=== PATIENT | female | born 1985 | race Hispanic/Latino ===

== ENCOUNTER 2018-05-16 12:48 | Emergency (ER) | payer SELFPAY | END 2018-05-16 13:08 | disposition home or self-care (01) | LOC: EDH 12:48 | DX: J11.1 Influenza due to unidentified influenza virus with other respiratory manifestations (principal); Z72.0 Tobacco use ==

== ENCOUNTER 2018-05-21 08:34 | Emergency (ER) | payer SELFPAY | END 2018-05-21 10:35 | disposition home or self-care (01) | LOC: EDH 08:34 | DX: J11.1 Influenza due to unidentified influenza virus with other respiratory manifestations (principal) | CPT/HCPCS: 71045 ==

== ENCOUNTER 2018-08-11 09:29 | Emergency (ER) | payer OTHER | END 2018-08-11 11:34 | disposition home or self-care (01) | LOC: EDH 09:29 | DX: B34.9 Viral infection, unspecified (principal); J40 Bronchitis, not specified as acute or chronic; Z98.51 Tubal ligation status | CPT/HCPCS: 71046; 87804 ==

== ENCOUNTER 2018-11-20 08:57 | Emergency (ER) | payer OTHER ==
[2018-11-20] MEDS ORDERED: ONDANSETRON ODT 4 MG TAB ONE (09:17)
== END 2018-11-20 09:32 | disposition home or self-care (01) ==
LOC: EDH 08:57 → EEVIPCON 08:57 → EDH 09:32
DX: R11.2 Nausea with vomiting, unspecified (principal); F41.9 Anxiety disorder, unspecified; F31.9 Bipolar disorder, unspecified; F43.10 Post-traumatic stress disorder, unspecified; Z98.51 Tubal ligation status

== ENCOUNTER 2019-01-07 20:31 | Emergency (ER) | payer SELFPAY ==
[2019-01-07] MEDS ORDERED: ACETAMINOPHEN 325 MG TAB ONE (20:54)
[2019-01-07] MEDS ORDERED: IBUPROFEN 600 MG TABLET ONE (21:46)
== END 2019-01-07 21:58 | disposition home or self-care (01) ==
LOC: EDH 20:31
DX: S89.82XA Other specified injuries of left lower leg, initial encounter (principal); F41.9 Anxiety disorder, unspecified; F31.9 Bipolar disorder, unspecified; F43.10 Post-traumatic stress disorder, unspecified; X50.1XXA Overexertion from prolonged static or awkward postures, initial encounter; Y93.89 Activity, other specified; Y92.89 Other specified places as the place of occurrence of the external cause; Y99.8 Other external cause status
CPT/HCPCS: 29505; 73562

== ENCOUNTER 2023-06-11 10:55 | Emergency (ER) | payer MEDICAID ==
[~2023-06-11] VITALS: Ht 160 cm; Wt 88.9 kg
[2023-06-11 11:52] VITALS: BP 124/70; PULSE 75; RESP 16; O2SAT 99
[2023-06-11] MEDS ORDERED: KETOROLAC 60 MG VIAL (30MG/ML) IM ONE (13:00)
[2023-06-11] MEDS ORDERED: ACET-2079 PO (14:49)
[2023-06-11] MEDS ORDERED: IBUP-2070 PO (14:49)
[2023-06-11] MEDS ORDERED: HYDROCODONE/ACETAMINOPHEN 5/325 MG TAB PO ONE (15:00)
== END 2023-06-11 15:10 | disposition home or self-care (01) ==
LOC: EDH 10:55
DX: S92.351A Displaced fracture of fifth metatarsal bone, right foot, initial encounter for closed fracture (principal); W01.0XXA Fall on same level from slipping, tripping and stumbling without subsequent striking against object, initial encounter; Y93.89 Activity, other specified; Y92.89 Other specified places as the place of occurrence of the external cause; Y99.8 Other external cause status
CPT/HCPCS: 99283; 73630; 96372; J1885

== ENCOUNTER → 2023-07-09 | Emergency (ER) | payer MEDICAID, MEDICARE ==
[~2023-07-09] VITALS: Ht 162.6 cm; Wt 113.4 kg
[~2023-07-09] MED LIST: ACET-2079 PO; IBUP-2070 PO
[2023-07-09 17:54] LABS: BASOPHILS # (AUTO) 0.05 K/uL (0.00-0.20); BASOPHILS % (AUTO) 0.5 % (0.0-5.0); EOSINOPHILS # (AUTO) 0.12 K/uL (0.00-0.70); EOSINOPHILS % (AUTO) 1.2 % (0.0-8.0); IMMATURE GRANULOCYTE ABSOLUTE 0.04 K/uL (0-1); LYMPHOCYTES # (AUTO) 2.9 K/uL (1.0-4.8); LYMPHOCYTES % (AUTO) 28.5 % (21.0-51.0); MEAN CORPUSCULAR HEMOGLOBIN 30.2 pg (27.0-33.0); MEAN CORPUSCULAR HGB CONC 33.7 g/dL (32.0-36.0); MEAN CORPUSCULAR VOLUME 89.6 fL (79-99); MONOCYTES # (AUTO) 0.7 K/uL (0.1-1.0); MONOCYTES % (AUTO) 6.5 % (3.0-13.0); NEUTROPHILS # (AUTO) 6.4 K/uL (1.8-7.7); NEUTROPHILS % (AUTO) 62.9 % (40.0-77.0); PLATELET COUNT (AUTO) 322 K/uL (130-400); RED BLOOD CELL COUNT(AUTO) 4.24 MIL/uL (4.00-5.50); RED CELL DISTRIBUTION WIDTH 13.8 % (11.0-15.5); WHITE BLOOD COUNT (AUTO) 10.2 K/uL (4.8-10.8)
[2023-07-09 18:31] LABS: CARBON DIOXIDE 27 mmol/L (21-32); CHLORIDE 102 mmol/L (101-111); CREATININE 0.9 mg/dL (0.5-1.5); GLOMERULAR FILTR. RATE CALC 85 mL/min (>90); GLUCOSE,RANDOM 84 mg/dL (70-105); POTASSIUM 3.7 mmol/L (3.5-5.1); SODIUM SERUM 139 mmol/L (136-145); UREA NITROGEN, BLOOD 9 mg/dL (7-18)
[2023-07-09 18:39] LABS: ALANINE AMINOTRANSFERASE 35 U/L (12-78); ALBUMIN 3.8 g/dL (3.5-5.0); ALCOHOL, BLOOD < 3 mg/dL (0-10); ASPARTATE AMINOTRANSFERASE 26 U/L (10-37); BILIRUBIN,TOTAL 0.2 mg/dL (0.2-1.0); TOTAL PROTEIN, SERUM 7.8 g/dL (6.0-8.3)
[2023-07-09 19:44] VITALS: BP 132/90; PULSE 82; RESP 16; O2SAT 96
== END ==
LOC: EDH 16:36
DX: R56.9 Unspecified convulsions (principal); F41.9 Anxiety disorder, unspecified; F31.9 Bipolar disorder, unspecified
CPT/HCPCS: 36415; 80053; 83605; 85025; 87040

== ENCOUNTER 2024-01-12 19:11 | Emergency (ER) | payer MEDICARE ==
[~2024-01-12] VITALS: Ht 160 cm; Wt 108.9 kg
[2024-01-12 21:21] LABS: BASOPHILS # (AUTO) 0.03 K/uL (0.00-0.20); BASOPHILS % (AUTO) 0.3 % (0.0-5.0); EOSINOPHILS # (AUTO) 0.02 K/uL (0.00-0.70); EOSINOPHILS % (AUTO) 0.2 % (0.0-8.0); HEMATOCRIT 44.2 % (36-48); IMMATURE GRANULOCYTE ABSOLUTE 0.03 K/uL (0-1); LYMPHOCYTES # (AUTO) 1.7 K/uL (1.0-4.8); LYMPHOCYTES % (AUTO) 15.8 % (21.0-51.0); MEAN CORPUSCULAR HEMOGLOBIN 29.7 pg (27.0-33.0); MEAN CORPUSCULAR HGB CONC 33.7 g/dL (32.0-36.0); MEAN CORPUSCULAR VOLUME 88.2 fL (79-99); MONOCYTES # (AUTO) 0.6 K/uL (0.1-1.0); NEUTROPHILS # (AUTO) 8.6 K/uL (1.8-7.7); NEUTROPHILS % (AUTO) 78.4 % (40.0-77.0); PLATELET COUNT (AUTO) 299 K/uL (130-400); RED BLOOD CELL COUNT(AUTO) 5.01 MIL/uL (4.00-5.50); RED CELL DISTRIBUTION WIDTH 13.2 % (11.0-15.5)
[2024-01-12 21:30] LABS: CREATININE 0.8 mg/dL (0.5-1.0); POTASSIUM 3.3 mmol/L (3.5-5.1)
[2024-01-12 21:39] LABS: ALBUMIN 3.7 g/dL (3.5-5.0); BILIRUBIN,TOTAL 0.6 mg/dL (0.2-1.0); TOTAL PROTEIN, SERUM 7.9 g/dL (6.0-8.3)
[2024-01-13 00:11] LABS: SARS-CoV-2, RNA, NAAT NEGATIVE SARS CoV-2 (NEGATIVE)
[2024-01-13 00:12] LABS: INFLUENZA TYPE A NEGATIVE FOR TYPE A (NEG); INFLUENZA TYPE B NEGATIVE FOR TYPE B (NEG)
[2024-01-13 00:13] LABS: RAPID GROUP A STREP positive (NEGATIVE)
[2024-01-13] MEDS ORDERED: AMOX500C2 PO (00:24)
[2024-01-13] MEDS: ONDANSETRON 4MG INJ IVP ONE (00:25)
[2024-01-13] MEDS: PANTOPRAZOLE 40 MG/VIAL IVP ONE (00:26)
[2024-01-13] MEDS: LACTATED RINGERS 1000ML 1,000 ML IV ONE (00:26)
[2024-01-13 00:33] VITALS: BP 105/54; PULSE 89; RESP 20; O2SAT 100
[2024-01-13 00:33] LABS: APPEARANCE,URINE TURBID (CLEAR); BILIRUBIN,URINE NEGATIVE (NEGATIVE); COLOR,URINE YELLOW (YELLOW); GLUCOSE, URINE (UA) NEGATIVE (NEGATIVE); KETONES,URINE NEGATIVE (NEGATIVE); LEUKOCYTE ESTERASE ,URINE 500 Leu/uL (NEGATIVE); NITRATE,URINE NEGATIVE (NEGATIVE); OCCULT BLOOD,URINE NEGATIVE (NEGATIVE); PROTEIN,URINE 30 mg/dL (NEGATIVE)
[2024-01-13 00:35] LABS: ADD UA MICROSCOPIC YES
[2024-01-13 00:37] LABS: HCG,QUALITATIVE URINE NEGATIVE (NEGATIVE)
[2024-01-13 00:39] LABS: BACTERIA,URINE MANY /HPF (None Seen); MUCUS,URINE MANY LPF (None Seen); SQUAMOUS EPITHELIAL CELL,UR MANY /HPF (0-2)
[2024-01-13 00:42] LABS: AMPHET/METH SCREEN,URINE NEGATIVE (NEGATIVE); BARBITURATE SCREEN, URINE NEGATIVE (NEGATIVE); BENZODIAZEPINES SCREEN,URINE NEGATIVE (NEGATIVE); CANNABINOID SCREEN,URINE NEGATIVE (NEGATIVE); COCAINE SCREEN,URINE NEGATIVE (NEGATIVE); OPIATE SCREEN,URINE NEGATIVE (NEGATIVE); PHENCYCLIDINE SCREEN,URINE NEGATIVE (NEGATIVE)
[2024-01-13] MEDS: ONDANSETRON 4MG INJ ONE (01:16)
[2024-01-13] MEDS: PANTOPRAZOLE 40 MG/VIAL ONE (01:16)
== END 2024-01-13 01:23 | disposition home or self-care (01) ==
LOC: EDH 19:11
DX: J02.0 Streptococcal pharyngitis (principal); F41.9 Anxiety disorder, unspecified; F31.9 Bipolar disorder, unspecified; Z20.822 Contact with and (suspected) exposure to COVID-19; Z79.899 Other long term (current) drug therapy; Z98.890 Other specified postprocedural states
CPT/HCPCS: 99284; 87635; 82550; 84484; 80053; 80305; 83690; 85025; 87088; 87880; 87804 ×2; 81025; 36415; 81001; 96374; 96375; J7120; J2405; C9113

== ENCOUNTER 2024-07-06 07:34 | Emergency (ER) | payer MEDICARE ==
[~2024-07-06] VITALS: Ht 160 cm; Wt 113.4 kg
[~2024-07-06 07:34] MED LIST changes: +AMOX500C2 PO
[2024-07-06 07:40] VITALS: TEMP 97.9
[2024-07-06 09:27] LABS: BASOPHILS # (AUTO) 0.03 K/uL (0.00-0.20); BASOPHILS % (AUTO) 0.3 % (0.0-5.0); EOSINOPHILS # (AUTO) 0.11 K/uL (0.00-0.70); EOSINOPHILS % (AUTO) 1.2 % (0.0-8.0); HEMATOCRIT 43.4 % (36-48); IMMATURE GRANULOCYTE ABSOLUTE 0.03 K/uL (0-1); LYMPHOCYTES # (AUTO) 2.5 K/uL (1.0-4.8); LYMPHOCYTES % (AUTO) 27.6 % (21.0-51.0); MEAN CORPUSCULAR HEMOGLOBIN 30.1 pg (27.0-33.0); MEAN CORPUSCULAR HGB CONC 32.9 g/dL (32.0-36.0); MEAN CORPUSCULAR VOLUME 91.4 fL (79-99); MONOCYTES # (AUTO) 0.7 K/uL (0.1-1.0); MONOCYTES % (AUTO) 7.3 % (3.0-13.0); NEUTROPHILS # (AUTO) 5.8 K/uL (1.8-7.7); NEUTROPHILS % (AUTO) 63.3 % (40.0-77.0); PLATELET COUNT (AUTO) 313 K/uL (130-400); RED BLOOD CELL COUNT(AUTO) 4.75 MIL/uL (4.00-5.50); RED CELL DISTRIBUTION WIDTH 13.2 % (11.0-15.5); WHITE BLOOD COUNT (AUTO) 9.1 K/uL (4.8-10.8)
[2024-07-06 09:34] LABS: CREATININE 0.7 mg/dL (0.5-1.0)
[2024-07-06 09:40] LABS: ALBUMIN 3.6 g/dL (3.5-5.0); BILIRUBIN,TOTAL 0.4 mg/dL (0.2-1.0); TOTAL PROTEIN, SERUM 7.7 g/dL (6.0-8.3)
--- NOTE | 2024-07-06 10:43 | ERN ---
General Chief Complaint: Lower Extremity Pain/Injury Stated Complaint: BLE PAIN Time Seen by MD: 08:28 Source: patient History of Present Illness Initial Comments Is a 38-year-old female coming in to be evaluated for right piriformis muscle tenderness radiating down the leg. Patient states she was told she has sciatica of the right side. Allergies: Coded Allergies: No Known Allergies (Unverified Allergy, Unknown, 06/11/23) Home Meds Active Scripts Amoxicillin (Amoxicillin) 500 Mg Capsule, 500 MG PO TID for 7 Days, #21 CAP Prov:MADDIE FOY MD 01/13/24 Acetaminophen with Codeine (Acetaminophen-Cod #3 Tablet) 300 Mg-30 Mg Tablet, 1 TAB PO Q6H PRN for PAIN LEVEL 6 TO 10, #12 TAB 0 Refills Prov:TIGRE AYALA 06/11/23 Ibuprofen (Ibuprofen) 600 Mg Tablet, 600 MG PO Q6H PRN for PAIN, #20 TAB 0 Refills Prov:TIGRE AYALA 06/11/23 Past Medical History Past Medical History: Anxiety, Bipolar, Depression, Seizure, Other Medical History Other: PTSD Past Surgical History: Surgical History Other: BUNION Social History Social History: Lives with family Female( History) LMP: Jun 21, 2024 Results Laboratory and Microbiology Lab and Micro Result Laboratory Tests Test 07/06/24 09:15 White Blood Count 9.1 K/uL (4.8-10.8) Red Blood Count 4.75 MIL/uL (4.00-5.50) Hemoglobin 14.3 g/dL (12.0-16.0) Hematocrit 43.4 % (36-48) Mean Corpuscular Volume 91.4 fL (79-99) Mean Corpuscular Hemoglobin 30.1 pg (27.0-33.0) Mean Corpuscular Hemoglobin Concent 32.9 g/dL (32.0-36.0) Red Cell Distribution Width 13.2 % (11.0-15.5) Platelet Count 313 K/uL (130-400) Mean Platelet Volume 10.1 fL (7.5-10.5) Immature Granulocyte % (Auto) 0.3 % (0-1) Neutrophils (%) (Auto) 63.3 % (40.0-77.0) Lymphocytes (%) (Auto) 27.6 % (21.0-51.0) Monocytes (%) (Auto) 7.3 % (3.0-13.0) Eosinophils (%) (Auto) 1.2 % (0.0-8.0) Basophils (%) (Auto) 0.3 % (0.0-5.0) Neutrophils # (Auto) 5.8 K/uL (1.8-7.7) Lymphocytes # (Auto) 2.5 K/uL (1.0-4.8) Monocytes # (Auto) 0.7 K/uL (0.1-1.0) Eosinophils # (Auto) 0.11 K/uL (0.00-0.70) Basophils # (Auto) 0.03 K/uL (0.00-0.20) Absolute Immature Granulocyte (auto 0.03 K/uL (0-1) Nucleated Red Blood Cells 0.0 % (0.0-0.19) Sodium Level 136 mmol/L (136-145) Potassium Level 4.0 mmol/L (3.5-5.1) Chloride Level 102 mmol/L (101-111) Carbon Dioxide Level 32 mmol/L (21-32) Blood Urea Nitrogen 16 mg/dL (7-18) Creatinine 0.7 mg/dL (0.5-1.0) Glomerular Filtration Rate Calc 114 mL/min (>90) Random Glucose 105 mg/dL (70-105) Total Calcium 9.0 mg/dL (8.5-10.1) Total Bilirubin 0.4 mg/dL (0.2-1.0) Aspartate Amino Transf (AST/SGOT) 25 U/L (10-37) Alanine Aminotransferase (ALT/SGPT) 40 U/L (12-78) Alkaline Phosphatase 74 U/L (50-136) Total Protein 7.7 g/dL (6.0-8.3) Albumin 3.6 g/dL (3.5-5.0) MDM MDM: Differential diagnosis: Right-sided sciatica, lower extremity pain. 38-year-old female coming in to be evaluated for right piriformis muscle tenderness radiating down her leg. Laboratory workup negative for acute findings. Patient will be discharged with a diagnosis of right-sided sciatica. I advised her appropriate follow up with PCP for ongoing management. ED Course Orders Procedure Category Date Status Time Cbc With Differential LAB 07/06/24 Complete 08:14 Comprehensive LAB 07/06/24 Complete Metabolic Panel 08:14 Urinalysis LAB 07/06/24 In Process W/Microscopic 09:48 Orphenadrine Citrate PHA 07/06/24 Transmitted (Norflex) 11:00 Triamcinolone Acet PHA 07/06/24 Transmitted 40mg/Ml 1ml (Kenalog 11:00 Vital Signs Date Time Temp Pulse Resp B/P (MAP) Pulse Ox O2 Delivery O2 Flow Rate FiO2 07/06/24 07:40 97.9 88 16 109/86 96 Room Air* 0 21 07/06/24 07:36 97.9 72 16 109/86 97 Room Air 0 DX & DISP Disposition: Discharge Departure Impression: Primary Impression: Right sided sciatica Condition: Stable Scripts Methocarbamol (Robaxin) 750 Mg Tab 1 TAB PO BID for 7 Days, #14 TAB 0 Refills Prov: MADDIE FOY MD 07/06/24 Naproxen (Naproxen) 375 Mg Tablet.dr 375 MG PO BID for 7 Days, #14 TAB Prov: MADDIE FOY MD 07/06/24 Additional Instructions: FOLLOW-UP WITH PRIMARY CARE PROVIDER IN 1 TO 2 DAYS. TAKE MEDICATIONS DIRECTED HERE IN THE EMERGENCY ROOM. OKAY TO CONTINUE HOME MEDICATIONS UNLESS OTHERWISE DISCUSSED DURING YOUR VISIT IN THE EMERGENCY ROOM TODAY. RETURN TO YOUR NEAREST EMERGENCY ROOM IF SYMPTOMS WORSEN OR IF THERE IS NO IMPROVEMENT. CALL 911 IF YOU NEED IMMEDIATE ASSISTANCE. TAKE TYLENOL [id number] NEEDED AND IF NO CONTRAINDICATIONS ARE PRESENT. INCREASE ORAL HYDRATION. A WOUND CULTURE OR URINE CULTURE WAS ORDERED HERE IN THE EMERGENCY ROOM DEPARTMENT PLEASE FOLLOW-UP WITH PRIMARY CARE PROVIDER AND ADVISE THEM TO GET REPEAT PORTS FROM OUR FACILITY. IF YOU HAD ANY MODESTA WRAP/SPLINTS THAT WERE APPLIED HERE, PLEASE DO NOT REMOVE THEM UNTIL YOU SEE YOUR PRIMARY CARE OR SPECIALTY. Referrals: Referrals: BYRON FERNANDEZ (PCP) MADDIE FOY MD Jul 06, 2024 10:43
[2024-07-06] MEDS ORDERED: METH-662 PO (10:46)
[2024-07-06] MEDS ORDERED: NAPR-1505 PO (10:46)
[2024-07-06 10:49] LABS: APPEARANCE,URINE CLEAR (CLEAR); BILIRUBIN,URINE NEGATIVE (NEGATIVE); COLOR,URINE LIGHT-YELLOW (YELLOW); GLUCOSE, URINE (UA) NEGATIVE (NEGATIVE); KETONES,URINE NEGATIVE (NEGATIVE); LEUKOCYTE ESTERASE ,URINE NEGATIVE Leu/uL (NEGATIVE); NITRATE,URINE NEGATIVE (NEGATIVE); OCCULT BLOOD,URINE NEGATIVE (NEGATIVE); PROTEIN,URINE NEGATIVE (NEGATIVE); UROBILINOGEN,URINE 0.2 mg/dL (0.2-1.0)
[2024-07-06 10:57] LABS: RBC,URINE 0-1 /HPF (0-1); SQUAMOUS EPITHELIAL CELL,UR FEW /HPF (0-2)
[2024-07-06] MEDS: ORPHENADRINE 60MG/2ML IM ONE (10:57)
[2024-07-06] MEDS: TRIAMCINOLONE ACETONIDE 40 MG/ML 1ML VIAL IM ONE (10:58)
[2024-07-06 11:17] VITALS: BP 140/88; PULSE 64; RESP 14; O2SAT 100
== END 2024-07-06 11:44 | disposition home or self-care (01) ==
LOC: EDH 07:34
DX: M54.31 Sciatica, right side (principal); F31.9 Bipolar disorder, unspecified; Z79.899 Other long term (current) drug therapy; Z98.890 Other specified postprocedural states
CPT/HCPCS: 99284; 80053; 85025; 81001; 36415; 96372 ×2; J3301; J2360

== ENCOUNTER 2024-09-19 04:30 | Emergency (ER) | payer MEDICARE ==
[~2024-09-19] VITALS: Ht 160 cm; Wt 117.9 kg
[~2024-09-19 04:30] MED LIST changes: +METH-662 PO; +NAPR-1505 PO
--- NOTE | 2024-09-19 04:38 | ERN ---
ED Note History of Present Illness Stated Complaint: ANKLE INJURY RIGHT Chief Complaint: Ankle Problem Time Seen by MD: 04:32 Dictation: This is a 38-year-old female who presented to the emergency room stating that she has right ankle pain and swelling. She stated that she was going down the steps and missed a step and twisted the ankle. She began experiencing pain around the ankle joint but she is able to move her toes. The pain is worse when she is ambulating No history of fall no other injuries. No syncope no loss of consciousness no palpitations or aura no headache . Temperature 97 pulse 100 respirations 16 blood pressure 138/95 with a pulse oximetry of 97% on room air Chronic medical problems include depression bipolar disorder, anxiety history of PTSD and seizures Allergies: Coded Allergies: No Known Allergies (Unverified Allergy, Unknown, 06/11/23) Home Meds Active Scripts Methocarbamol (Robaxin) 750 Mg Tab, 1 TAB PO BID for 7 Days, #14 TAB 0 Refills Prov:MADDIE FOY MD 07/06/24 Naproxen (Naproxen) 375 Mg Tablet.dr, 375 MG PO BID for 7 Days, #14 TAB Prov:MADDIE FOY MD 07/06/24 Amoxicillin (Amoxicillin) 500 Mg Capsule, 500 MG PO TID for 7 Days, #21 CAP Prov:MADDIE FOY MD 01/13/24 Acetaminophen with Codeine (Acetaminophen-Cod #3 Tablet) 300 Mg-30 Mg Tablet, 1 TAB PO Q6H PRN for PAIN LEVEL 6 TO 10, #12 TAB 0 Refills Prov:TIGRE AYALA 06/11/23 Ibuprofen (Ibuprofen) 600 Mg Tablet, 600 MG PO Q6H PRN for PAIN, #20 TAB 0 Refills Prov:TIGRE AYALA 06/11/23 Past Medical History Past Medical History: Anxiety, Bipolar, Depression, Seizure, Other Additional Past Medical Hx: PTSD Surgical History: Surgical History Other: BUNION Social History: Lives with family RN Note Reviewed/Agreed w/PFSH: Yes Review of System Dictation Constitutional: Negative for fever,chills, and weight loss Eyes: Negative for injury, pain,redness, and discharge ENT: Negative for injury,pain or swelling Cardiovascular: Negative for chest pain, palpitations, and edema Respiratory: Negative for shortness of breath, cough, and wheezing, Abdomen/GI: Negative for abdominal pain, nausea, vomiting, diarrhea, and constipation Back: Negative for injury and pain : Negative for injury, bleeding and discharge MS/Extremity: Negative for injury and deformity right ankle pain Skin: Negative for rash, and discoloration Neuro: Negative for headache, weakness, numbness, tingling, and seizure Psych: Negative for suicide ideation, homicidal ideation, and hallucinations Initial Vital Sign VS Vital Signs Date Time Temp Pulse Resp B/P (MAP) Pulse Ox O2 Delivery O2 Flow Rate FiO2 09/19/24 04:31 97.0 100 16 135/95 97 Room Air 09/19/24 04:40 0 21 Physical Exam Dictation General: awake, alert, NAD morbidly obese Head/Face: Normocephalic, atraumatic Eyes: PERRL, EOMI, vision at baseline ENT: oral cavity clear, TMs clear, no signs of infection Neck: Trachea midline, supple, no nuchal rigidity Cardiovascular: RRR, normal S1/S2, No MRGs, no JVD Respiratory: CTAB, no respiratory distress, No rales or wheezes Abdomen: Soft, non-tender, non-distended, normal bowel sounds, no guarding or rebound. Skin: Warm, dry, normal turgor, no rash MS/Extremity: Pulses equal, no cyanosis, neurovascular intact, FROM right ankle exam-no deformity movement of the toes normal very minimal tenderness on the ankle joint area. No severe swelling. Neuro: COAx4, GCS 15, strength 5/5, CN 2-12 intact, normal cerebellar exam, normal gait, Psych: Normal behavior, mood, and affect normal Extremities-trace edema without any palpable cords, Homans sign is negative Results (Laboratory/Radiology) Labs Reviewed?: Yes ED Course ED Course Orders Procedure Category Date Status Time Ankle Comp 3vws Rt RAD 09/19/24 Taken 04:35 Ketorolac PHA 09/19/24 Complete Tromethamine 30mg/Ml 05:30 Current Medications Medications (Trade) Dose Ordered Sig/Clotilde Route PRN Reason Start Time Stop Time Status Last Admin Dose Admin Ketorolac Tromethamine (toRADol) 30 mg ONCE ONCE IM 09/19/24 05:30 09/19/24 05:31 DC 09/19/24 05:26 Vital Signs Date Time Temp Pulse Resp B/P (MAP) Pulse Ox O2 Delivery O2 Flow Rate FiO2 09/19/24 06:08 98.6 70 20 130/84 100 Room Air* 0 21 09/19/24 04:40 98.6 66 20 133/88 100 Room Air* 0 21 09/19/24 04:31 97.0 100 16 135/95 97 Room Air We will perform imaging and administer medications according to the patient's complaint. Once the results are available, will review and personally interpreted the labs to rule out any acute life-threatening emergency the trach require immediate intervention and treatment. I will then re-evaluate the patient after treatment and diagnostic exams have return to determine whether the patient requires any further testing, can safely be discharged home or need further admission to hospital for additional treatment and evaluation. I reviewed the ankle x-ray and I do not see any obvious fractures or dislocation. Radiology report is pending at this time We will give an ankle brace and referral to Orthopedics Dr. Heart as outpatient Medical Decision Making MDM MDM: Differential diagnosis: Fracture, sprain, ligament injury, hematoma Rationale: Tests considered and ordered secondary to shared decision making include: Previous outside records reviewed: Old ER visits. Risk of complication and/or morbidity or mortality of patient management: None Medications-Per medication reconciliation Need for hospitalization: Patient does not meet criteria for hospitalization. Need for emergency major/minor surgery: No There are no social concerns with this patient. Prescription drug management Prescriptions will include symptomatic care Patient's prior external medical records from other ER visits were reviewed by me as indicated. Prior testing and results from previous visits were reviewed. Prior tests were taken into account with medical decision making and resource utilization, independent historian/historians were used to obtain complete medical history. I independently interpreted the test that were performed, results were reviewed by me and considered findings on radiology if ordered. Medical management and examination interpretation discussions were had by me with other qualified healthcare professionals as indicated for the patient's care. Problem List Problem List: (1) Obesity (2) Moderate right ankle sprain (3) Right ankle pain DX & DISP Disposition: Discharge Departure Impression: Primary Impression: Right ankle pain Additional Impressions: Moderate right ankle sprain, Obesity Condition: Stable Additional Instructions: Patient and the caregiver have been informed of all the diagnostic tests and the imaging conducted during the today's visit to the emergency room and has verbalized understanding of the results I have personally reviewed and interpreted all diagnostic exams performed here in the ER today as well as the vital signs documented by the nursing staff. The patient is now being discharged to home and should follow up with the primary care physician or the specialist as directed by the ER staff. Follow-up with primary care provider in 1 to 2 days. Take medications as directed here in the emergency room. Okay to continue home medications unless otherwise discussed during your visit in the emergency room today. Return to your nearest emergency room if symptoms worsen or if there is no improvement. Call 911 if you need immediate assistance. Take Tylenol or Motrin [id number] as needed and if no contraindications are present. Increase oral hydration. A wound culture or urine culture was ordered here in the e mergency room department please follow-up with primary care provider and advise them to get repeat ports from our facility. If you had any Billy wrap/splints that were applied here, please do not remove them until you see your primary care or specialty. Referrals: BYRON FERNANDEZ (PCP) [facility] ANURADHA R MD Sep 19, 2024 04:38
[2024-09-19] MEDS: ketOROlac 30MG VIAL (30MG/ML) IM ONE (05:26)
[2024-09-19 06:08] VITALS: BP 130/84; PULSE 70; RESP 20; TEMP 98.6; O2SAT 100
--- NOTE | 2024-09-19 06:22 | NUR ---
PER ED DOCTOR PLACE ORTHO BOOT ON PATIENT, PATIENT TOLERATED WELL
--- NOTE | 2024-09-19 08:18 | HMCIMG ---
ANKLE COMP 3VWS RT REASON: h/o ankle pain and swelling TECHNIQUE: 3 views were obtained. FINDINGS: There is no evidence of fracture or dislocation. There is no joint effusion. The soft tissues appear unremarkable. There is no evidence of a radiopaque foreign body. IMPRESSION: No acute findings.
== END 2024-09-19 06:23 | disposition home or self-care (01) ==
LOC: EDH 04:30
DX: S93.401A Sprain of unspecified ligament of right ankle, initial encounter (principal); M25.571 Pain in right ankle and joints of right foot; F41.9 Anxiety disorder, unspecified; F31.9 Bipolar disorder, unspecified; E66.9 Obesity, unspecified; X50.1XXA Overexertion from prolonged static or awkward postures, initial encounter; Y93.89 Activity, other specified; Y92.89 Other specified places as the place of occurrence of the external cause; Y99.8 Other external cause status
CPT/HCPCS: 99283; 73610; 96372; J1885